=== PATIENT | female | born 1950 | race Two or more races ===

== ENCOUNTER 2018-02-01 09:51 | Outpatient (CLI) | payer OTHER | END 2018-02-01 17:00 | disposition home or self-care (01) | LOC: RAD 09:51 | DX: R07.89 Other chest pain (principal) ==

== ENCOUNTER 2018-09-21 08:39 | Outpatient (CLI) | payer OTHER | END 2018-09-21 14:31 | disposition home or self-care (01) | LOC: LAB 08:39 | DX: K59.09 Other constipation (principal); D53.8 Other specified nutritional anemias; R53.83 Other fatigue; R59.0 Localized enlarged lymph nodes; N39.0 Urinary tract infection, site not specified; R05 Cough ==

== ENCOUNTER 2018-09-21 09:11 | Outpatient (CLI) | payer OTHER | END 2018-09-21 09:18 | disposition home or self-care (01) | LOC: RAD 09:11 | DX: R05 Cough (principal) ==

== ENCOUNTER 2019-08-15 07:24 | Outpatient (CLI) | payer OTHER | END 2019-08-15 07:55 | disposition home or self-care (01) | LOC: RAD 07:24 | DX: R07.89 Other chest pain (principal) ==

== ENCOUNTER 2019-09-02 12:28 | Outpatient (CLI) | payer OTHER | END 2019-09-02 12:32 | disposition home or self-care (01) | LOC: RAD 12:28 → NUCLEAR 14:00 | PROVIDERS: ATTEND Colon & Rectal Surgery | DX: M85.80 Other specified disorders of bone density and structure, unspecified site (principal); M79.641 Pain in right hand; M79.642 Pain in left hand; M25.551 Pain in right hip; M25.552 Pain in left hip ==

== ENCOUNTER 2019-10-30 07:58 | Outpatient (CLI) | payer OTHER | END 2019-10-30 08:06 | disposition home or self-care (01) | LOC: RAD 07:58 | PROVIDERS: ATTEND Orthopaedic Surgery | DX: M25.571 Pain in right ankle and joints of right foot (principal); M79.671 Pain in right foot ==

== ENCOUNTER 2019-10-30 16:05 | Outpatient (CLI) | payer OTHER | END 2019-10-30 16:09 | disposition home or self-care (01) | LOC: LAB 16:05 | PROVIDERS: ATTEND Orthopaedic Surgery | DX: E56.1 Deficiency of vitamin K (principal); E83.42 Hypomagnesemia ==

== ENCOUNTER 2019-11-15 14:58 | Outpatient (CLI) | payer OTHER | END 2019-11-15 14:59 | disposition home or self-care (01) | LOC: RAD 14:58 | PROVIDERS: ATTEND Colon & Rectal Surgery | DX: M79.671 Pain in right foot (principal); M79.672 Pain in left foot ==

== ENCOUNTER → 2019-11-21 15:14 | Outpatient (CLI) | payer OTHER | END | disposition home or self-care (01) | LOC: RAD 15:14 | PROVIDERS: ATTEND Colon & Rectal Surgery | DX: S69.92XA Unspecified injury of left wrist, hand and finger(s), initial encounter (principal); R22.32 Localized swelling, mass and lump, left upper limb; M25.532 Pain in left wrist; S79.919A Unspecified injury of unspecified hip, initial encounter; M25.559 Pain in unspecified hip ==

== ENCOUNTER 2020-05-20 08:29 | Day surgery (SDC) | payer OTHER | END 2020-05-20 12:30 | disposition home or self-care (01) | LOC: AMB-ENDOS 08:29 | PROVIDERS: ATTEND Colon & Rectal Surgery | DX: D12.0 Benign neoplasm of cecum (principal); K64.1 Second degree hemorrhoids; Z12.11 Encounter for screening for malignant neoplasm of colon; Z20.822 Contact with and (suspected) exposure to COVID-19 ==

== ENCOUNTER 2020-05-30 10:57 | Outpatient (CLI) | payer OTHER | END 2020-05-30 11:56 | disposition home or self-care (01) | LOC: RAD 10:57 | PROVIDERS: ATTEND Colon & Rectal Surgery | DX: M17.12 Unilateral primary osteoarthritis, left knee (principal) ==

== ENCOUNTER 2020-07-06 06:00 | Inpatient (IN) | payer OTHER ==
[~2020-07-06] VITALS: Ht 160 cm; Wt 67.1 kg
[2020-07-07] MEDS ORDERED: COMBIGAN EYE DRO5 ML (09:43)
[2020-07-07] MEDS ORDERED: CELECOXIB200 MG (09:43)
[2020-07-07] MEDS ORDERED: XARELTO10 M1 (09:43)
== END 2020-07-09 13:19 | disposition home or self-care (01) | DRG 470 ==
LOC: CIR.AMB 06:00 → O/R 06:21 → EDSTATUS 07:19 → CIR.AMB 07:20 → SURG 12:34 → O/R 12:34 → SURG 13:33
PROVIDERS: ADMIT Orthopaedic Surgery; ATTEND Orthopaedic Surgery
PROC: 0SRD0J9 Replacement of Left Knee Joint with Synthetic Substitute, Cemented, Open Approach (ICD-10-PCS; principal; 2020-07-06 08:00)
DX: M17.12 Unilateral primary osteoarthritis, left knee (principal); D62 Acute posthemorrhagic anemia

== ENCOUNTER 2020-10-02 10:19 | Outpatient (CLI) | payer OTHER ==
[~2020-10-02 10:19] MED LIST: CELECOXIB200 MG; COMBIGAN EYE DRO5 ML; XARELTO10 M1
== END 2020-10-02 10:23 | disposition home or self-care (01) ==
LOC: RAD 10:19
PROVIDERS: ATTEND Orthopaedic Surgery
DX: M25.562 Pain in left knee (principal)

== ENCOUNTER → 2020-11-05 10:28 | Outpatient (CLI) | payer OTHER | END | disposition home or self-care (01) | LOC: LAB 10:28 | PROVIDERS: ATTEND Colon & Rectal Surgery | DX: D53.8 Other specified nutritional anemias (principal); R63.4 Abnormal weight loss; R10.84 Generalized abdominal pain; N39.0 Urinary tract infection, site not specified ==

== ENCOUNTER 2020-12-01 10:09 | Outpatient (CLI) | payer OTHER | END 2020-12-01 10:10 | disposition home or self-care (01) | LOC: LAB 10:09 | PROVIDERS: ATTEND Internal Medicine Geriatric Medicine | DX: E03.8 Other specified hypothyroidism (principal); N28.89 Other specified disorders of kidney and ureter; D50.8 Other iron deficiency anemias; E78.2 Mixed hyperlipidemia; I11.9 Hypertensive heart disease without heart failure; E56.8 Deficiency of other vitamins; N39.0 Urinary tract infection, site not specified; Z12.11 Encounter for screening for malignant neoplasm of colon; E55.9 Vitamin D deficiency, unspecified; E11.9 Type 2 diabetes mellitus without complications; C18.0 Malignant neoplasm of cecum; K92.1 Melena; E53.8 Deficiency of other specified B group vitamins; D72.818 Other decreased white blood cell count; E72.11 Homocystinuria ==

== ENCOUNTER 2021-01-13 07:39 | Outpatient (CLI) | payer OTHER | END 2021-01-13 07:59 | disposition home or self-care (01) | LOC: LAB 07:39 | PROVIDERS: ATTEND Internal Medicine Hematology & Oncology | DX: D50.8 Other iron deficiency anemias (principal); R79.89 Other specified abnormal findings of blood chemistry; D51.8 Other vitamin B12 deficiency anemias; B20 Human immunodeficiency virus [HIV] disease; B17.8 Other specified acute viral hepatitis; Z11.59 Encounter for screening for other viral diseases; B27.80 Other infectious mononucleosis without complication; M32.8 Other forms of systemic lupus erythematosus; M35.89 Other specified systemic involvement of connective tissue; K74.3 Primary biliary cirrhosis; M34.81 Systemic sclerosis with lung involvement; E06.3 Autoimmune thyroiditis; M33.20 Polymyositis, organ involvement unspecified; M05.8A Other rheumatoid arthritis with rheumatoid factor of other specified site; D72.818 Other decreased white blood cell count; E78.2 Mixed hyperlipidemia ==

== ENCOUNTER 2021-03-12 07:17 | Outpatient (CLI) | payer OTHER | END 2021-03-12 07:25 | disposition home or self-care (01) | LOC: TOM 07:17 | PROVIDERS: ATTEND Colon & Rectal Surgery | DX: R07.89 Other chest pain (principal) ==

== ENCOUNTER 2021-04-09 07:05 | Outpatient (CLI) | payer OTHER | END 2021-04-09 07:10 | disposition home or self-care (01) | LOC: LAB 07:05 | PROVIDERS: ATTEND Internal Medicine Geriatric Medicine | DX: D50.8 Other iron deficiency anemias (principal); E03.8 Other specified hypothyroidism; E78.2 Mixed hyperlipidemia; I11.9 Hypertensive heart disease without heart failure; E56.8 Deficiency of other vitamins; N39.0 Urinary tract infection, site not specified; Z12.11 Encounter for screening for malignant neoplasm of colon; E55.9 Vitamin D deficiency, unspecified; N19 Unspecified kidney failure; E11.9 Type 2 diabetes mellitus without complications; R80.8 Other proteinuria; C18.0 Malignant neoplasm of cecum; K92.1 Melena ==

== ENCOUNTER → 2021-05-10 07:42 | Outpatient (CLI) | payer OTHER | END | disposition home or self-care (01) | LOC: LAB 07:42 | PROVIDERS: ATTEND Internal Medicine Hematology & Oncology | DX: D50.8 Other iron deficiency anemias (principal); R79.9 Abnormal finding of blood chemistry, unspecified; D51.8 Other vitamin B12 deficiency anemias; B20 Human immunodeficiency virus [HIV] disease; B17.9 Acute viral hepatitis, unspecified; Z11.59 Encounter for screening for other viral diseases; M32.9 Systemic lupus erythematosus, unspecified; M06.9 Rheumatoid arthritis, unspecified; K74.3 Primary biliary cirrhosis; D51.1 Vitamin B12 deficiency anemia due to selective vitamin B12 malabsorption with proteinuria; D51.0 Vitamin B12 deficiency anemia due to intrinsic factor deficiency; M34.81 Systemic sclerosis with lung involvement; E06.3 Autoimmune thyroiditis; M33.20 Polymyositis, organ involvement unspecified; M05.9 Rheumatoid arthritis with rheumatoid factor, unspecified ==

== ENCOUNTER 2021-07-05 09:00 | Outpatient (CLI) | payer OTHER | END 2021-07-05 09:15 | disposition home or self-care (01) | LOC: PPH VACUNA 09:00 | PROVIDERS: ATTEND Emergency Medicine Pediatric Emergency Medicine | DX: Z23 Encounter for immunization (principal) ==

== ENCOUNTER 2021-10-06 07:19 | Outpatient (CLI) | payer OTHER | END 2021-10-06 07:31 | disposition home or self-care (01) | LOC: LAB 07:19 | PROVIDERS: ATTEND Emergency Medicine Pediatric Emergency Medicine | DX: D50.9 Iron deficiency anemia, unspecified (principal); E03.9 Hypothyroidism, unspecified; E78.2 Mixed hyperlipidemia; I11.9 Hypertensive heart disease without heart failure; E56.8 Deficiency of other vitamins; N39.0 Urinary tract infection, site not specified; Z12.11 Encounter for screening for malignant neoplasm of colon; R19.5 Other fecal abnormalities; E55.9 Vitamin D deficiency, unspecified; N19 Unspecified kidney failure; E11.9 Type 2 diabetes mellitus without complications ==

== ENCOUNTER 2022-03-09 09:46 | Outpatient (CLI) | payer OTHER | END 2022-03-09 09:54 | disposition home or self-care (01) | LOC: RAD 09:46 | PROVIDERS: ATTEND Internal Medicine Pulmonary Disease | DX: R05.9 Cough, unspecified (principal) ==

== ENCOUNTER 2022-03-14 09:57 | Outpatient (CLI) | payer OTHER | END 2022-03-14 10:07 | disposition home or self-care (01) | LOC: PPH VACUNA 09:57 | PROVIDERS: ATTEND Emergency Medicine Pediatric Emergency Medicine | DX: Z23 Encounter for immunization (principal) ==

== ENCOUNTER 2022-04-06 10:28 | Outpatient (CLI) | payer OTHER | END 2022-04-06 10:31 | disposition home or self-care (01) | LOC: LAB 10:28 | PROVIDERS: ATTEND Internal Medicine Geriatric Medicine | DX: D50.9 Iron deficiency anemia, unspecified (principal); E03.9 Hypothyroidism, unspecified; E78.2 Mixed hyperlipidemia; I11.9 Hypertensive heart disease without heart failure; E56.8 Deficiency of other vitamins; N39.0 Urinary tract infection, site not specified; Z12.11 Encounter for screening for malignant neoplasm of colon; R19.5 Other fecal abnormalities; E55.9 Vitamin D deficiency, unspecified; N19 Unspecified kidney failure; E11.9 Type 2 diabetes mellitus without complications; D50.8 Other iron deficiency anemias; R79.9 Abnormal finding of blood chemistry, unspecified; I10 Essential (primary) hypertension; R74.02 Elevation of levels of lactic acid dehydrogenase [LDH]; K76.89 Other specified diseases of liver; D51.8 Other vitamin B12 deficiency anemias; D51.1 Vitamin B12 deficiency anemia due to selective vitamin B12 malabsorption with proteinuria; D51.0 Vitamin B12 deficiency anemia due to intrinsic factor deficiency; D72.818 Other decreased white blood cell count; M19.90 Unspecified osteoarthritis, unspecified site ==

== ENCOUNTER 2022-04-13 08:30 | Outpatient (CLI) | payer OTHER | END 2022-04-13 08:35 | disposition home or self-care (01) | LOC: RAD 08:30 | PROVIDERS: ATTEND Orthopaedic Surgery | DX: M25.511 Pain in right shoulder (principal); M25.531 Pain in right wrist; M25.561 Pain in right knee; M25.562 Pain in left knee ==

== ENCOUNTER → 2022-05-11 07:59 | Outpatient (CLI) | payer OTHER | END | disposition home or self-care (01) | LOC: LAB 07:59 | PROVIDERS: ATTEND Ophthalmology | DX: D68.8 Other specified coagulation defects (principal); I10 Essential (primary) hypertension; R07.89 Other chest pain ==

== ENCOUNTER 2022-08-16 11:39 | Outpatient (CLI) | payer OTHER | END 2022-08-16 12:05 | disposition home or self-care (01) | LOC: LAB 11:39 | PROVIDERS: ATTEND Internal Medicine Gastroenterology | DX: R10.84 Generalized abdominal pain (principal); E03.9 Hypothyroidism, unspecified; D64.9 Anemia, unspecified; E78.5 Hyperlipidemia, unspecified; Z13.1 Encounter for screening for diabetes mellitus; M81.8 Other osteoporosis without current pathological fracture; R79.82 Elevated C-reactive protein (CRP); D51.3 Other dietary vitamin B12 deficiency anemia; D51.9 Vitamin B12 deficiency anemia, unspecified; D52.0 Dietary folate deficiency anemia; M19.90 Unspecified osteoarthritis, unspecified site; M06.4 Inflammatory polyarthropathy; M32.9 Systemic lupus erythematosus, unspecified; M05.70 Rheumatoid arthritis with rheumatoid factor of unspecified site without organ or systems involvement ==

== ENCOUNTER 2022-11-02 10:19 | Outpatient (CLI) | payer OTHER | END 2022-11-02 15:03 | disposition home or self-care (01) | LOC: LAB 10:19 | PROVIDERS: ATTEND Internal Medicine Hematology & Oncology | DX: D50.9 Iron deficiency anemia, unspecified (principal); E03.9 Hypothyroidism, unspecified; E78.2 Mixed hyperlipidemia; I11.9 Hypertensive heart disease without heart failure; E56.8 Deficiency of other vitamins; N39.0 Urinary tract infection, site not specified; Z12.11 Encounter for screening for malignant neoplasm of colon; R19.5 Other fecal abnormalities; E55.9 Vitamin D deficiency, unspecified; N19 Unspecified kidney failure; E11.9 Type 2 diabetes mellitus without complications; D50.8 Other iron deficiency anemias; R79.9 Abnormal finding of blood chemistry, unspecified; I10 Essential (primary) hypertension; R74.02 Elevation of levels of lactic acid dehydrogenase [LDH]; K76.89 Other specified diseases of liver; D51.1 Vitamin B12 deficiency anemia due to selective vitamin B12 malabsorption with proteinuria; D72.818 Other decreased white blood cell count; M19.90 Unspecified osteoarthritis, unspecified site ==

== ENCOUNTER 2023-06-15 08:54 | Outpatient (CLI) | payer OTHER ==
[2023-06-15 10:53] LABS: HEMATOCRIT 38.4 % (36.0-45.00); HEMOGLOBIN 13.3 g/dL (12.0-15.00); MEAN CELL VOLUME 91.6 fL (80.00-100.00); MEAN CORPUSCULAR HEMOGLOBIN 31.7 pg (27.00-32.0); MEAN CORPUSCULAR HGB CONC 34.6 g/dl (32.0-36.0); PLATELET COUNT 244 K/uL (150-450); RED BLOOD COUNT 4.19 M/uL (4.00-6.00); RED CELL DISTRIBUTION WIDTH 12.4 % (11.5-14.5)
[2023-06-15 10:59] LABS: PH,URINE 6.5 (5.0-8.0); URINE APPEARANCE Clear; URINE BILIRRUBIN Negative (NEGATIVE); URINE BLOOD Negative; URINE COLOR Yellow; URINE GLUCOSE Negative (NEGATIVE); URINE LEUKOCYTE Trace; URINE NITRATE Negative; URINE PROTEIN Negative (NEGATIVE); URINE UROBILINOGEN 0.2 E.U./dl
[2023-06-15 11:00] LABS: ALBUMIN 3.9 gm/dL (3.4-5.0); BILIRUBIN TOTAL 0.46 mg/dL (0.3-1.2); CALCIUM 8.7 mg/dL (8.5-10.1); CHOL HDL RATIO 3.4 (0-5.0); CREATININE SERUM 0.53 mg/dL (0.55-1.02); GFR 113.39; GLOBULINA 3.4 G/DL (2.4-3.5); POTASSIUM 4.45 mEq/L (3.5-5.1); TOTAL PROTEIN 7.3 gm/dL (6.4-8.2)
[2023-06-15 11:03] LABS: URINE BACTERIA 25.1 uL (0.0-1933); URINE EPITHELIAL CELLS 2.9 uL (0.0-38.8); URINE RBC 14.5 uL (0.0-20.8)
[2023-06-15 15:42] LABS: TSH 1.32 uIU/mL (0.358-3.74)
== END 2023-06-15 14:18 | disposition home or self-care (01) ==
LOC: LAB 08:54
PROVIDERS: ATTEND Internal Medicine Geriatric Medicine
DX: D50.9 Iron deficiency anemia, unspecified (principal); E03.9 Hypothyroidism, unspecified; E78.2 Mixed hyperlipidemia; I11.9 Hypertensive heart disease without heart failure; E56.8 Deficiency of other vitamins; N39.0 Urinary tract infection, site not specified; Z12.11 Encounter for screening for malignant neoplasm of colon; R19.5 Other fecal abnormalities; E55.9 Vitamin D deficiency, unspecified; N19 Unspecified kidney failure; E11.9 Type 2 diabetes mellitus without complications

== ENCOUNTER 2023-07-11 08:06 | Outpatient (CLI) | payer OTHER ==
[2023-07-11 09:01] LABS: HEMOGLOBIN 13.7 g/dL (12.0-15.00); MEAN CELL VOLUME 92.9 fL (80.00-100.00); MEAN CORPUSCULAR HEMOGLOBIN 31.7 pg (27.00-32.0); MEAN CORPUSCULAR HGB CONC 34.2 g/dl (32.0-36.0); PLATELET COUNT 273 K/uL (150-450); RED BLOOD COUNT 4.31 M/uL (4.00-6.00); RED CELL DISTRIBUTION WIDTH 12.7 % (11.5-14.5)
[2023-07-11 09:06] LABS: ERYTHROCYTE SEDIMENTATION RATE 14 mm/hr
[2023-07-11 09:32] LABS: ALKALINE PHOSPHATASE 81 U/L (50-136); ALT/SGPT 40 U/L (12-78); ANION GAP 6 (10.0-20.0); AST/SGOT 29 U/L (15-37); BILIRUBIN TOTAL 0.69 mg/dL (0.3-1.2); BLOOD UREA NITROGEN 9 mg/dL (7-18); BUN CREA RATIO 15 (7.0-25.0); CALCIUM 9.4 mg/dL (8.5-10.1); CARBON DIOXIDE 33 mEq/L (21-32); CHLORIDE 105 mmol/L (98-107); GFR 97.99; GLOBULINA 3.6 G/DL (2.4-3.5); GLUCOSE FASTING 98 mg/dL (65-100); OSMOLALITY SERUM 278 MOSM/KG (275-295); SODIUM 140 mmol/L (136-145); TOTAL PROTEIN 7.6 gm/dL (6.4-8.2)
[2023-07-11 09:49] LABS: C-REACTIVE PROTEIN < 0.29 MG/DL (0.00-0.29)
== END 2023-07-11 11:10 | disposition home or self-care (01) ==
LOC: LAB 08:06
DX: M06.4 Inflammatory polyarthropathy (principal); M19.91 Primary osteoarthritis, unspecified site

== ENCOUNTER 2023-11-28 08:08 | Outpatient (CLI) | payer OTHER ==
[2023-11-28 09:08] LABS: HEMOGLOBIN 13.5 g/dL (12.0-15.00); MEAN CELL VOLUME 91.9 fL (80.00-100.00); MEAN CORPUSCULAR HEMOGLOBIN 31.8 pg (27.00-32.0); MEAN CORPUSCULAR HGB CONC 34.7 g/dl (32.0-36.0); PLATELET COUNT 266 K/uL (150-450); RED BLOOD COUNT 4.25 M/uL (4.00-6.00); RED CELL DISTRIBUTION WIDTH 12.6 % (11.5-14.5)
[2023-11-28 09:13] LABS: URINE APPEARANCE Clear; URINE BILIRRUBIN Negative (NEGATIVE); URINE BLOOD Trace; URINE COLOR Yellow; URINE GLUCOSE Negative (NEGATIVE); URINE KETONE Negative (NEGATIVE); URINE LEUKOCYTE Trace; URINE NITRATE Negative; URINE PROTEIN Negative (NEGATIVE); URINE UROBILINOGEN 0.2 E.U./dl
[2023-11-28 09:21] LABS: URINE EPITHELIAL CELLS 4.9 uL (0.0-38.8); URINE RBC 30.9 uL (0.0-20.8)
[2023-11-28 10:16] LABS: BILIRUBIN TOTAL 0.69 mg/dL (0.3-1.2); CALCIUM 9.1 mg/dL (8.5-10.1); CHOL HDL RATIO 3.4 (0-5.0); CREATININE SERUM 0.57 mg/dL (0.55-1.02); GFR 103.97; GLOBULINA 3.5 G/DL (2.4-3.5); POTASSIUM 4.24 mEq/L (3.5-5.1); TOTAL PROTEIN 7.5 gm/dL (6.4-8.2)
[2023-11-28 13:56] LABS: ob NEGATIVE (NEGATIVE)
[2023-11-28 14:37] LABS: TSH 2.03 uIU/mL (0.358-3.74)
== END 2023-11-28 08:09 | disposition home or self-care (01) ==
LOC: LAB 08:08
PROVIDERS: ATTEND Internal Medicine Geriatric Medicine
DX: D50.9 Iron deficiency anemia, unspecified (principal); E03.9 Hypothyroidism, unspecified; E78.2 Mixed hyperlipidemia; I11.9 Hypertensive heart disease without heart failure; E56.8 Deficiency of other vitamins; N39.0 Urinary tract infection, site not specified; Z12.11 Encounter for screening for malignant neoplasm of colon; R19.5 Other fecal abnormalities; E55.9 Vitamin D deficiency, unspecified; N19 Unspecified kidney failure; E11.9 Type 2 diabetes mellitus without complications; R06.02 Shortness of breath

== ENCOUNTER 2023-11-28 13:34 | Outpatient (CLI) | payer OTHER | END 2023-11-28 13:46 | disposition home or self-care (01) | LOC: RAD 13:34 | PROVIDERS: ATTEND Physical Medicine & Rehabilitation | DX: M16.0 Bilateral primary osteoarthritis of hip (principal); M54.17 Radiculopathy, lumbosacral region; M51.27 Other intervertebral disc displacement, lumbosacral region; M47.817 Spondylosis without myelopathy or radiculopathy, lumbosacral region; M51.37 Other intervertebral disc degeneration, lumbosacral region ==

== ENCOUNTER 2023-12-13 10:10 | Outpatient (CLI) | payer OTHER | END 2023-12-13 10:15 | disposition home or self-care (01) | LOC: RAD 10:10 | PROVIDERS: ATTEND Orthopaedic Surgery | DX: M25.561 Pain in right knee (principal); M25.562 Pain in left knee ==

== ENCOUNTER 2024-03-25 14:09 | Outpatient (CLI) | payer OTHER | END 2024-03-25 14:12 | disposition home or self-care (01) | LOC: SONOGRAMA 14:09 | PROVIDERS: ATTEND Orthopaedic Surgery | DX: M54.50 Low back pain, unspecified (principal); M25.551 Pain in right hip ==

== ENCOUNTER 2024-11-23 08:20 | Outpatient (CLI) | payer OTHER | END 2024-11-23 08:24 | disposition home or self-care (01) | LOC: RAD 08:20 | PROVIDERS: ATTEND Plastic Surgery Surgery of the Hand | DX: Z01.818 Encounter for other preprocedural examination (principal) ==

== ENCOUNTER 2025-01-09 09:48 | Outpatient (CLI) | payer OTHER | END 2025-01-09 09:51 | disposition home or self-care (01) | LOC: RAD 09:48 | PROVIDERS: ATTEND Orthopaedic Surgery | DX: M25.562 Pain in left knee (principal) ==